=== PATIENT | female | born 1955 | race Asian ===

== ENCOUNTER 2016-08-31 08:50 | Outpatient (CLI) | payer BC ==
[~2016-08-31 08:50] MED LIST: CIPRO500 MG PO
== END 2016-08-31 19:06 | disposition home or self-care (01) ==
LOC: MAMMO 08:50
DX: Z12.31 Encounter for screening mammogram for malignant neoplasm of breast (principal)
CPT/HCPCS: G0202-TC

== ENCOUNTER 2017-10-07 09:56 | Outpatient (CLI) | payer BC | END 2017-10-07 19:25 | disposition home or self-care (01) | LOC: US 09:56 | DX: Z12.31 Encounter for screening mammogram for malignant neoplasm of breast (principal) ==

== ENCOUNTER 2019-01-19 18:28 | Emergency (ER) | payer OTHER, BC ==
[~2019-01-19] VITALS: Ht 157.5 cm; Wt 113.4 kg
[2019-01-19 18:50] VITALS: BP 239/88; TEMP 97.9
== END 2019-01-19 21:55 | disposition home or self-care (01) ==
LOC: ED 18:28
DX: S16.1XXA Strain of muscle, fascia and tendon at neck level, initial encounter (principal); S46.812A Strain of other muscles, fascia and tendons at shoulder and upper arm level, left arm, initial encounter; S46.811A Strain of other muscles, fascia and tendons at shoulder and upper arm level, right arm, initial encounter; M25.511 Pain in right shoulder; V89.2XXA Person injured in unspecified motor-vehicle accident, traffic, initial encounter; Y92.89 Other specified places as the place of occurrence of the external cause
CPT/HCPCS: 99282